=== PATIENT | female | born 1955 | race Caucasian/White ===

== ENCOUNTER 2019-11-06 11:14 | Emergency (ER) | payer MEDICARE, OTHER, SELFPAY ==
[2019-11-06 11:22] VITALS: BP 161/88; PULSE 99; RESP 24; TEMP 36.3; O2SAT 90; BMI 28.0
[2019-11-06 11:42] VITALS: BP 114/77; PULSE 88; RESP 20; O2SAT 99
--- NOTE | 2019-11-06 12:00 | XR_ITS ---
WS: [id number] Portable AP upright chest, 11/06/2019 Clinical Data: dyspnea Comparison: Portable chest, 10/05/2016. Findings: No nodules, masses or effusions are seen. The heart is normal. The pulmonary vascularity is not increased. No pneumonia or pneumothorax is seen. Midline sternotomy sutures are present. XR/XR chest 1V portable [id number] Impression: Negative for acute cardiopulmonary disease.
--- NOTE | 2019-11-06 12:02 | ECG_ITS ---
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 Measurements Intervals [place] Rate: 85 P: 65 NE: 155 QRS: 56 QRSD: 150 T: 182 QT: 387 QTc: 460 Interpretive Statements SINUS RHYTHM POSSIBLE LEFT ATRIAL ENLARGEMENT [-0.1mV P WAVE IN V1/V2] INTRAVENTRICULAR CONDUCTION DELAY [130+ ms QRS DURATION] Compared to ECG 01/06/2019 12:48:31 Intraventricular conduction delay now present Left bundle-branch block no longer present Electronically Signed On 11-06-2019 20:21:26 CDT by Sawyer Engel M.D. [id number] f
[2019-11-06 12:14] VITALS: PULSE 86; RESP 24; O2SAT 99
[2019-11-06] MEDS: albuterol 8 gm MDI 4 PUFF INHALATION (12:14)
[2019-11-06 12:16] VITALS: PULSE 90
[2019-11-06] MEDS: dexamethasone 10 mg/mL INJ IVP (12:47)
[2019-11-06 12:53] LABS: Basophils % 0.4 %; Eosinophils % 0.4 %; Hematocrit 37.4 % (37.0-47.0); Hemoglobin 12.4 g/dL (11.5-15.3); Lymphocytes # 2.7 10^3/uL (0.8-4.8); Mean Corpuscular HGB Conc 33.2 g/dL (30.0-36.0); Mean Corpuscular Hemoglobin 32.5 pg (28.0-34.0); Mean Corpuscular Volume 97.9 fL (81-99); Mean Platelet Volume 10.1 fL (7.4-10.4); Monocytes # 0.9 10^3/uL (0.2-0.9); Monocytes % 8.2 %; Neutrophils # 7.12 10^3/uL (1.8-7.7); Neutrophils % 65.9 %; Nucleated Red Blood Cells % 0 %; Platelet Count 258 10^3/cmm (130-400); Red Blood Count 3.82 10^6/uL (4.1-5.3); Red Cell Distribution Width 12.4 % (12.1-15.1); White Blood Count 10.8 10^3/uL (4.0-10.0)
[2019-11-06 13:10] LABS: INR 0.91 (0.8-1.2)
[2019-11-06 13:12] LABS: D Dimer 0.45 ug/mIFEU (0-0.59)
[2019-11-06 13:17] LABS: Troponin(5th) Baseline 17 ng/L (0-10)
[2019-11-06 13:25] LABS: Procalcitonin 0.03 ng/mL (0-0.5)
[2019-11-06 13:36] LABS: Alanine Aminotransferase 22 U/L (0-33); Albumin Level 4.4 g/dL (3.5-5.2); Alkaline Phosphatase 102 IU/L (35-105); Anion Gap 18.2 (5-19); Aspartate Amino Transferase 24 U/L (0-32); Blood Urea Nitrogen 10 mg/dL (8-23); C Reactive Protein 33.3 mg/L (0.0-4.9); Calcium 8.5 mg/dL (8.5-10.5); Carbon Dioxide 24 mmol/L (22-29); Chloride 101 mmol/L (98-107); Globulin 2.5 g/dL (1.3-4.6); Glomerular Filtration Rate 62.6 mL/min (90-130); Glucose 106 mg/dL (65-115); Osmolality Calculated 284 mOsm/kg (285-295); Potassium 4.2 mmol/L (3.5-5.1); Sodium 139 mmol/L (136-145); Total Bilirubin 0.3 mg/dL (0.15-1.2); Total Protein 6.9 g/dL (6.6-8.7)
[2019-11-06 13:45] LABS: SARS Covid-2 Antigen Negative (Negative)
--- NOTE | 2019-11-06 14:02 | ECG_ITS ---
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 Measurements Intervals [place] Rate: 86 P: 63 TN: 152 QRS: 48 QRSD: 149 T: 71 QT: 405 QTc: 485 Interpretive Statements SINUS RHYTHM POSSIBLE LEFT ATRIAL ENLARGEMENT [-0.1mV P WAVE IN V1/V2] LEFT BUNDLE BRANCH BLOCK [120+ ms QRS DURATION, 80+ ms Q/S IN V1/V2, 85+ ms R IN I/aVL/V5/V6] Compared to ECG 11/06/2019 12:11:11 Left bundle-branch block now present Intraventricular conduction delay no longer present Electronically Signed On 11-06-2019 20:25:05 CDT by Sawyer Engel M.D. [id number] f
[2019-11-06 15:14] LABS: Troponin 5 2HR 14.33 ng/L (0-10)
[2019-11-06 15:17] LABS: Troponin 5 2HR Delta -2.67 ABS# (0-10)
[2019-11-06 16:21] VITALS: BP 137/76; PULSE 94; RESP 18; O2SAT 99
--- NOTE | 2019-11-06 23:18 | W.ED.SOB ---
HPI - SOB/Dyspnea General: Chief Complaint: Shortness of Breath/Dyspnea Stated Complaint: sob/cough Time Seen by Provider: 11/06/19 11:47 History of Present Illness: HPI Narrative: This patient is a 64-year-old female who presents today with shortness of breath. She has a history of COPD. She denies fevers or exposure to COVID. She said she usually gets bronchitis and this feels similar to that. MD elicited complaint: shortness of breath and cough Pertinent past history: COPD Timing: constant Severity: moderate Exacerbating factors: nothing Relieving factors: nothing Associated symptoms: Deny abdominal pain, chest pain, fever(s), nausea or vomiting Review of Systems General: Reports: 10 or more systems reviewed and unremarkable except in HPI and below Const: Denies: fever(s), chills, fatigue or malaise Eyes: Denies: change in vision ENMT: Denies: odynophagia Card: Denies: chest pain or swelling of feet/ankles Resp: Reports: dyspnea; Denies: productive cough or non-productive cough GI: Denies: abdominal pain, nausea or vomiting : Denies: flank pain or difficulty voiding Musc: Denies: neck pain or back pain Skin/Breast: Denies: rash Neuro: Denies: headache(s), numbness in extremities or weakness in extremities Samir/Lymph: Denies: easy bruising or easy bleeding Physical Exam Const: COMMON NORMALS: no acute distress, patient oriented x3, no limitations and alert GENERAL APPEARANCE: cooperative and comfortable HENMT: HEAD & SCALP: normal to inspection FACE & SINUS: normal facial exam Eye: GENERAL EYE: appearance normal, both eyes and all related structures Neck/C-Spine: COMMON NORMALS: supple, no meningeal signs and no JVD Chest: COMMONS NORMALS: normal inspection of the chest Resp: EFFORT & INSPECTION: Yes able to speak in complete sentences, Yes labored and Yes uses accessory muscles AUSCULTATION: wheezes (Throughout) Cardio: COMMON NORMALS: no JVD, regular rate, regular rhythm and No murmurs present (Cardio) RATE: regular rate RHYTHM: regular rhythm GI: COMMON NORMALS: Normal to inspection, nondistended, normoactive bowel sounds present, Soft to palpation and non-tender INSPECTION: Yes normal to inspection AUSCULTATION: Yes normoactive bowel sounds PALPATION: Yes Soft to palpation Back/Pelvis: COMMON NORMALS: thoracic and lumbar spine normal to inspection Extremity: COMMON NORMALS: normal to inspection Neuro: COMMON NORMALS: patient oriented x3, moves all extremities, no focal motor deficits and no sensory deficits noted SENSORIUM/ORIENTATION: Yes alert MENINGEAL SIGNS: Yes no meningeal signs Psych: COMMON NORMALS: mental status grossly normal, cooperative and normal affect Skin: COMMON NORMALS: no rashes or lesions noted and turgor normal GENERAL SKIN EXAM: no rashes or lesions noted and turgor normal Course ED course: Patient with history of COPD. She presents with what appears to be a COPD exacerbation. She did have a COVID test done which was negative. Chest x-ray was clear. She was dramatically better after 4 puffs of albuterol. She was also given some Decadron. I do not think she needs antibiotics. She was sent home and said that she felt very comfortable going home. She has nebulizer treatments at home. She will follow-up with her primary care doctor and we also discussed return precautions. Vital Signs: Vital signs: Vital Signs Temperature 97.4 F L 11/06/19 11:22 Pulse Rate 94 11/06/19 16:21 Respiratory Rate 18 11/06/19 16:21 Blood Pressure 137/76 11/06/19 16:21 Pulse Oximetry 99 11/06/19 16:21 MDM - SOB/Dyspnea Lab Data: Labs: Lab Results 11/06/19 11/06/19 11/06/19 Range/Units 12:35 12:35 12:35 WBC 10.8 H (4.0-10.0) 10^3/ uL RBC 3.82 L (4.1-5.3) 10^6/u L Hgb 12.4 (11.5-15.3) g/dL Hct 37.4 (37.0-47.0) % MCV 97.9 (81-99) fL MCH 32.5 (28.0-34.0) pg MCHC 33.2 (30.0-36.0) g/dL RDW 12.4 (12.1-15.1) % Plt Count 258 (130-400) 10^3/c mm MPV 10.1 (7.4-10.4) fL Neut % (Auto) 65.9 % Lymph % (Auto) 25.0 % [place] % (Auto) 8.2 % Eos % (Auto) 0.4 % Baso % (Auto) 0.4 % Neut # (Auto) 7.12 (1.8-7.7) 10^3/u L Lymph # (Auto) 2.7 (0.8-4.8) 10^3/u L [place] # (Auto) 0.9 (0.2-0.9) 10^3/u L Eos # (Auto) 0.0 (0.0-0.8) 10^3/u L Baso # (Auto) 0.0 (0.0-0.1) 10^3/u L Nucleated RBC % (a uto) 0 % Nucleated RBCs # 0.0 /100WBC PT 12.50 (12.1-14.9) SECO NDS INR 0.91 (0.8-1.2) D-Dimer 0.45 (0-0.59) ug/mIFE U Sodium 139 (136-145) mmol/L Potassium 4.2 (3.5-5.1) mmol/L Chloride 101 (98-107) mmol/L Carbon Dioxide 24 (22-29) mmol/L Anion Gap 18.2 (5-19) BUN 10 (8-23) mg/dL Creatinine 0.9 (0.5-0.9) mg/dL GFR Calculation 62.6 L (90-130) mL/min Glucose 106 (65-115) mg/dL Calculated Osmolal ity 284 L (285-295) mOsm/k g Calcium 8.5 (8.5-10.5) mg/dL Total Bilirubin 0.3 (0.15-1.2) mg/dL AST 24 (0-32) U/L ALT 22 (0-33) U/L Alkaline Phosphata se 102 (35-105) IU/L Troponin T Baselin e (0-10) ng/L Troponin T 120 Min [place] (0-10) ng/L Delta Troponin T (0-10) ABS# C-Reactive Protein 33.3 H (0.0-4.9) mg/L Total Protein 6.9 (6.6-8.7) g/dL Albumin 4.4 (3.5-5.2) g/dL Globulin 2.5 (1.3-4.6) g/dL Procalcitonin 0.03 (0-0.5) ng/mL SARS-CoV-2 Ag (Rap id) (Negative) 11/06/19 11/06/19 11/06/19 Range/Units 12:35 12:40 14:45 WBC (4.0-10.0) 10^3/ uL RBC (4.1-5.3) 10^6/u L Hgb (11.5-15.3) g/dL Hct (37.0-47.0) % MCV (81-99) fL MCH (28.0-34.0) pg MCHC (30.0-36.0) g/dL RDW (12.1-15.1) % Plt Count (130-400) 10^3/c mm MPV (7.4-10.4) fL Neut % (Auto) % Lymph % (Auto) % [place] % (Auto) % Eos % (Auto) % Baso % (Auto) % Neut # (Auto) (1.8-7.7) 10^3/u L Lymph # (Auto) (0.8-4.8) 10^3/u L [place] # (Auto) (0.2-0.9) 10^3/u L Eos # (Auto) (0.0-0.8) 10^3/u L Baso # (Auto) (0.0-0.1) 10^3/u L Nucleated RBC % (a uto) % Nucleated RBCs # /100WBC PT (12.1-14.9) SECO NDS INR (0.8-1.2) D-Dimer (0-0.59) ug/mIFE U Sodium (136-145) mmol/L Potassium (3.5-5.1) mmol/L Chloride (98-107) mmol/L Carbon Dioxide (22-29) mmol/L Anion Gap (5-19) BUN (8-23) mg/dL Creatinine (0.5-0.9) mg/dL GFR Calculation (90-130) mL/min Glucose (65-115) mg/dL Calculated Osmolal ity (285-295) mOsm/k g Calcium (8.5-10.5) mg/dL Total Bilirubin (0.15-1.2) mg/dL AST (0-32) U/L ALT (0-33) U/L Alkaline Phosphata se (35-105) IU/L Troponin T Baselin e 17 H (0-10) ng/L Troponin T 120 Min [place] 14.33 H (0-10) ng/L Delta Troponin T -2.67 L (0-10) ABS# C-Reactive Protein (0.0-4.9) mg/L Total Protein (6.6-8.7) g/dL Albumin (3.5-5.2) g/dL Globulin (1.3-4.6) g/dL Procalcitonin (0-0.5) ng/mL SARS-CoV-2 Ag (Rap id) Negative (Negative) Discharge Plan Discharge Patient Disposition: Home Clinical Impression: COPD exacerbation Condition: Stable Prescriptions: No Action albuterol sulfate 2.5 mg /3 mL (0.083 %) solution for nebulization 2.5 mg INHALATION QID PRN (Reason: Shortness Of Breath) RF: 0 amlodipine 10 mg tablet 10 mg PO DAILY RF: 0 cholecalciferol (vitamin D3) 1,000 unit capsule 1,000 unit PO DAILY RF: 0 furosemide 40 mg tablet 40 mg PO QAM PRN (Reason: Edema) RF: 0 loratadine [Loradamed] 10 mg tablet 10 mg PO ONCE RF: 0 metoprolol succinate 50 mg capsule,sprinkle,ER 24hr 50 mg PO DAILY RF: 0 montelukast [Singulair] 10 mg tablet 10 mg PO DAILY RF: 0 omeprazole 20 mg capsule,delayed release(DR/EC) 20 mg PO DAILY RF: 0 oxybutynin chloride 5 mg tablet 5 mg PO BID PRN (Reason: Bladder Spasms) RF: 0 sertraline 100 mg tablet 100 mg PO Q24H RF: 0 Ativan 1 tab PO DAILY RF: 0 Multiple Vitamin, Womens Tablet 1 tab PO DAILY RF: 0 mirtazapine 1 mg PO BEDTIME RF: 0 Discharge Orders: Discharge Order (Routine); Ordered 11/06/19 Ordered By: Carey Poole Referrals: Castro,Donna, [employer] [Primary Care Provider] - Discharge Diet: Usual diet Discharge Activity: Resume usual activity Patient Instructions: Chronic Obstructive Pulmonary Disease (ED) Activity Restrictions/Additional Instructions: Return to the emergency department if feeling worse including worsening shortness of breath, chest pain, fever. Continue your regular medications as prescribed. The steroid that was given to here last for several days in your system. Follow-up with your primary care provider if not improving within a few days Discharge Date/Time: 11/06/19 16:00 Coding Level of Care Code ED Transportation Mechanic for Jane Bazzi
== END 2019-11-06 16:00 | disposition home or self-care (01) ==
PROVIDERS: Emergency Provider Emergency Medicine; PCP Nurse Practitioner Family
DX: J44.1 Chronic obstructive pulmonary disease with (acute) exacerbation (principal)
CPT/HCPCS: 12345; 36415; 71045; 80053; 84145; 84484; 85025; 85378; 85610; 86140; 87426; 93005; 94640; 96374; 96375; 99283; 99284; J1100; J3535

== ENCOUNTER 2020-04-28 13:59 | Outpatient (CLI) | payer MEDICARE, OTHER, SELFPAY ==
--- NOTE | 2020-04-28 13:30 | CT_ITS ---
WS: [id number] CT ABDOMEN PELVIS TECHNIQUE: Contrast-enhanced CT of the abdomen and pelvis with coronal and sagittal reformatted image s. CLINICAL INFORMATION: ABD PAIN, GERD, GASTRITIS, PVD, SYSTEMIC POLYPS COMPARISON: None. DLP: 1057.[address] scans at [facility] use at least one of these dose optimization techniques: automat ed exposure control; mA and/or kV adjustment per patient size (includes targeted exams where dose is matched to clinical indication); or iterative reconstruction. FINDINGS: Diffuse fatty infiltration of the liver. Normal portal vein and splenic vein. Normal gallbladder. Nor mal pancreas. Normal splenic enhancement. Normal GE junction. Small esophageal hiatal hernia. Lung ba ses are well aerated. Mild diffuse gastric and duodenal thickening can be seen with gastritis and duo denitis.. Adrenal glands are normal. Normal renal parenchymal enhancement. No hydronephrosis. Promine nt right extrarenal pelvis. Both ureters are decompressed. Postoperative changes right OWEN degrades images in the pelvis. A few sigmoid diverticuli. No evidence of acute diverticulitis. No evidence of high-grade small or large bowel obstruction. Normal appendix right lower quadrant. Terminal ilium appears normal. No abdominal or pelvic lymphadenopathy. Mild ao rtic calcification. Slight anterolisthesis L5 on S1. Disc space narrowing worse at L3-L4 and L4-L5 wi th vacuum disc phenomenon. CT/CT abdomen pelvis w con* [id number] IMPRESSION: 1. No evidence of high-grade small or large bowel obstruction. 2. Tortuous sigmoid colon. A few diverticuli. 3. Normal appendix right lower quadrant. Normal terminal ilium. 4. Mild diffuse gastric and duodenal wall thickening can be seen with gastrodu odenitis. Recommend clinical correlation. 5. Small esophageal hiatal hernia. 6. Mild diffuse fatty infiltration of the liver. 7. Prominent right extra renal pelvis unchanged since the CTA chest 2017
[2020-04-28] MEDS: iohexol 300 mg/mL 50 mL Btl PO (14:14)
[2020-04-28 15:05] LABS: Blood Urea Nitrogen 14 mg/dL (8-23); Glomerular Filtration Rate 55.3 mL/min (90-130)
[2020-04-28] MEDS: iodixanol 320 mg/mL 100mL Btl IV (15:12)
== END 2020-04-28 14:00 | disposition home or self-care (01) ==
LOC: RADWPI 14:09
PROVIDERS: PCP Nurse Practitioner Family; Visit Provider Nurse Practitioner Family
DX: R10.9 Unspecified abdominal pain (principal); K21.9 Gastro-esophageal reflux disease without esophagitis; I73.9 Peripheral vascular disease, unspecified; K29.70 Gastritis, unspecified, without bleeding; K76.0 Fatty (change of) liver, not elsewhere classified; K44.9 Diaphragmatic hernia without obstruction or gangrene
CPT/HCPCS: 74177; 82565; 84520; Q9967

== ENCOUNTER 2020-06-04 13:35 | Outpatient (CLI) | payer MEDICARE, OTHER, SELFPAY ==
--- NOTE | 2020-06-04 14:15 | USCV_ITS ---
Ida Small Age: 65 Gender: F : 1955 Exam Date: 06/04/2020 14:09 Ordering Phys: Horacio Ruff M.D ([email or web address]) Technologist: Rody Beverly Exam Location: [facility] [place] Indication: PVD Risk Factors: Previous Vascular Surgery: RIGHT LEFT BP: 130.0 / BP: 138.0/ 0 0 Waveform Velocity (cm/s) Velocity (cm/s) Waveform Triphasic 126.8 Iliac Prox 115.7 Triphasic Triphasic 144.9 Iliac Mid 117.8 Triphasic Triphasic 155.2 Iliac Distal 118.7 Triphasic Triphasic 111.0 SIGNAL MECHANIC 153.5 Triphasic Triphasic 155.4 SFA Prox 133.6 Triphasic Triphasic 156.9 SFA Mid 156.9 Triphasic Triphasic 298.0 SFA Dist 149.1 Triphasic Triphasic 109.2 POP 123.2 Triphasic Triphasic 119.1 STUDENT LIAISON OFFICER 89.7 Triphasic Triphasic 101.4 DPA 105.8 N/A 1.1 SERA 1.1 FINDINGS RT STUDENT LIAISON OFFICER 140 RT DPA 145 LT STUDENT LIAISON OFFICER 125 LT DPA 145 Normal resting ABIs bilaterally Normal arterial Doppler waveforms bilaterally Elevated velocity in the distal right superficial femoral artery with a normal Doppler waveform. CONCLUSIONS 1. Possibly no significant obstructive arterial disease based on the above findings. 2. Elevated velocity in the right distal SFA may suggests tortuosity in the vessel. Consider exercise SERA, if clinically indicated Dr Carla Thakur MD [facility] (Electronically Signed) Final Date: 04 June 2020 15:20 S
== END 2020-06-04 13:36 | disposition home or self-care (01) ==
LOC: RAD 13:40
PROVIDERS: PCP Nurse Practitioner Family; Visit Provider Internal Medicine
DX: I73.9 Peripheral vascular disease, unspecified (principal)
CPT/HCPCS: 93925

== ENCOUNTER 2020-08-05 21:47 | Emergency (ER) | payer MEDICARE, OTHER, SELFPAY ==
[2020-08-05 21:48] VITALS: BP 189/90; PULSE 95; RESP 20; TEMP 36.7; O2SAT 96; BMI 28.3
--- NOTE | 2020-08-05 22:01 | XRR_ITS ---
PROCEDURE INFORMATION: Exam: XR Left Knee Exam date and time: 08/05/2020 10:01 PM Age: 65 years old Clinical indication: Injury or trauma; Blunt trauma; Left; Patient HX: Fall. Abrasion to knee. TECHNIQUE: Imaging protocol: XR Left knee. Views: 3 views. COMPARISON: No relevant prior studies available. FINDINGS: Bones/joints: There is a loss of joint space seen within the 3 compartments of the left knee, most severe within the medial compartment. Soft tissues: Normal. 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
--- NOTE | 2020-08-05 22:01 | XRR_ITS ---
PROCEDURE INFORMATION: Exam: XR Chest Exam date and time: 08/05/2020 10:01 PM Age: 65 years old Clinical indication: Injury or trauma; Blunt trauma (contusions or hematomas); Prior surgery; Surgery type: Cabg; Patient HX: Fall. ; Additional info: SOB TECHNIQUE: Imaging protocol: XR of the chest. Views: 1 view. COMPARISON: CR XR chest 1V portable [id number] 11/06/2019 12:22 PM FINDINGS: Lungs: Unremarkable. No consolidation. Pleural spaces: Unremarkable. No pleural effusion. No pneumothorax. Heart/Mediastinum: Unremarkable. No cardiomegaly. Bones/joints: Unremarkable. XR/XR chest 1V portable [id number] IMPRESSION: No acute findings.
--- NOTE | 2020-08-05 22:01 | ECG_ITS ---
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 Measurements Intervals [place] Rate: 85 P: 62 ID: 170 QRS: 59 QRSD: 166 T: 172 QT: 420 QTc: 502 Interpretive Statements SINUS RHYTHM POSSIBLE LEFT ATRIAL ENLARGEMENT [-0.1mV P WAVE IN V1/V2] LEFT BUNDLE BRANCH BLOCK [120+ ms QRS DURATION, 80+ ms Q/S IN V1/V2, 85+ ms R IN I/aVL/V5/V6] Compared to ECG 11/06/2019 14:25:44 No significant changes Electronically Signed On 08-05-2020 23:10:31 CDT by Horacio Ruff M.D. [id number] f
--- NOTE | 2020-08-05 22:01 | XRR_ITS ---
PROCEDURE INFORMATION: Exam: XR Left Hip Exam date and time: 08/05/2020 10:01 PM Age: 65 years old Clinical indication: Injury or trauma; Blunt trauma (contusions or hematomas); Left; Hip; Patient HX: Fall. C/O pain. TECHNIQUE: Imaging protocol: XR Left hip. Views: 2 or 3 views hip with pelvis when performed. COMPARISON: CT abdomen pelvis w con* [id number] 04/28/2020 3:09 PM FINDINGS: Bones/joints: Unremarkable. No acute fracture. Soft tissues: Unremarkable. XR/XR hip LT 2-3V wo/w pel* [id number] IMPRESSION: No acute findings.
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
[2020-08-05] MEDS: LORazepam 2 mg/mL INJ 1 mL 1 MG IVP (22:12)
--- NOTE | 2020-08-05 22:25 | PC.NURSE ---
EKG taken and given to Dr. Patel
[2020-08-06 00:04] VITALS: BP 151/89; PULSE 82; RESP 18; O2SAT 95
== END 2020-08-06 00:04 | disposition home or self-care (01) ==
PROVIDERS: Emergency Provider Emergency Medicine; PCP Nurse Practitioner Family
DX: F41.9 Anxiety disorder, unspecified (principal); S80.212A Abrasion, left knee, initial encounter; Z79.82 Long term (current) use of aspirin; I25.10 Atherosclerotic heart disease of native coronary artery without angina pectoris; I11.0 Hypertensive heart disease with heart failure; I50.9 Heart failure, unspecified; J44.9 Chronic obstructive pulmonary disease, unspecified; Z95.1 Presence of aortocoronary bypass graft; F17.210 Nicotine dependence, cigarettes, uncomplicated; W19.XXXA Unspecified fall, initial encounter
CPT/HCPCS: 71045; 73502; 73562; 93005; 96374; 99283; J2060

== ENCOUNTER → 2021-04-27 10:43 | Outpatient (BNVA) | payer MEDICARE, OTHER, SELFPAY | PROVIDERS: PCP Nurse Practitioner Family; Visit Provider Internal Medicine | DX: M19.90 Unspecified osteoarthritis, unspecified site (principal); R79.82 Elevated C-reactive protein (CRP); R51.9 Headache, unspecified; R21 Rash and other nonspecific skin eruption; Z11.59 Encounter for screening for other viral diseases; F17.210 Nicotine dependence, cigarettes, uncomplicated | CPT/HCPCS: 99204 ==

== ENCOUNTER 2021-04-27 12:07 | Outpatient (CLI) | payer MEDICARE, OTHER, SELFPAY ==
[2021-04-27 12:51] LABS: Add Urine Microscopic? NO; Charge for UA Resulting for Rev
--- NOTE | 2021-04-27 12:55 | XR_ITS ---
WS: [id number] Lateral views of cervical spine in the flexion, extension and neutral positions. 04/27/2021 Clinical Data: I10 - Essential (primary) hypertension Comparison: None. Findings: There is degenerative disc narrowing at C5-C6 and C6-C7 with anterior osteophytes. On flexion and ext ension there is no limitation of motion or subluxation. There is no prevertebral soft tissue swelling . Postop sternal sutures are seen. XR/XR cervical spine fl/ex [id number] Impression: 1. Degenerative disc narrowing at C5-C6 and C6-C7 with anterior osteophytes. 2. Negative for limitation of motion or subluxation on flexion or extension.
[2021-04-27 13:09] LABS: Erythrocyte Sedimentation Rate 24 mm/hr (0-15)
[2021-04-27 13:16] LABS: Bilirubin Urine Neg (Negative); Blood Urine Neg (Negative); Glucose Urine UA Norm (Normal); Ketones Urine Negative (Negative); Leukocyte Esterase Urine Negative (Negative); Nitrate Urine Negative (Negative); Protein Urine Neg (Negative); Specific Gravity, Urine 1.005 (1.005-1.030); Urine Appearance Clear (CLEAR); Urine Color Straw (Yellow); Urobilinogen Urine Norm (Negative); pH Urine 6 (5-7)
[2021-04-27 13:44] LABS: Hepatitis B Core AB, Total Non-Reactive (Nonreactive); Hepatitis B Surface Antigen Non-Reactive (Nonreactive); Hepatitis C Virus Antibody Non-Reactive (Nonreactive)
[2021-04-28 11:58] LABS: COMPLEMENT COMPONENT C3C 144 mg/dL (83-193); COMPLEMENT COMPONENT C4C 30 mg/dL (15-57)
[2021-04-28 14:47] LABS: Cyclic Citrullinated Peptide <16 UNITS
[2021-04-29 10:52] LABS: CENTROMERE B ANTIBODY <1.0 NEG AI (<1.0 NEG); JO-1 ANTIBODY <1.0 NEG AI (<1.0 NEG); RNP ANTIBODY <1.0 NEG AI (<1.0 NEG); SCL-70 ANTIBODY <1.0 NEG AI (<1.0 NEG); SJOGREN'S ANTIBODY (SS-A) <1.0 NEG AI (<1.0 NEG); SM ANTIBODY <1.0 NEG AI (<1.0 NEG); SS-B <1.0 NEG AI (<1.0 NEG)
[2021-04-29 15:07] LABS: COMPLEMENT, TOTAL (CH50) >60 U/mL (31-60)
[2021-04-29 15:47] LABS: Immunoglobulin A 287 mg/dL (70-320)
[2021-04-29 15:52] LABS: ANA SCREEN, IFA NEGATIVE (NEGATIVE)
[2021-04-29 16:23] LABS: THYROID PEROXIDASE ANTIBODIES <1 IU/mL (<9)
[2021-04-30 02:02] LABS: Tissue Transglutaminase IgA Ab <1.0 U/mL; Tissue transglutaminase Ab.IgG <1.0 U/mL
[2021-04-30 02:13] LABS: Gliadin Ab.IgA <1.0 U/mL; Gliadin Ab.IgG <1.0 U/mL
[2021-04-30 11:41] LABS: DNA AB (DS) CRITHIDIA,IFA NEGATIVE (NEGATIVE)
== END 2021-04-27 12:08 | disposition home or self-care (01) ==
PROVIDERS: PCP Nurse Practitioner Family; Visit Provider Internal Medicine
DX: I10 Essential (primary) hypertension (principal); M25.78 Osteophyte, vertebrae
CPT/HCPCS: 36415; 72040; 81003; 82784; 83516; 85651; 86160; 86162; 86200; 86235; 86255; 86376; 86431; 86704; 86803; 87340

== ENCOUNTER → 2021-05-05 12:36 | Outpatient (BNVA) | payer MEDICARE, OTHER, SELFPAY | PROVIDERS: PCP Nurse Practitioner Family; Visit Provider Internal Medicine | DX: M19.90 Unspecified osteoarthritis, unspecified site (principal); R79.82 Elevated C-reactive protein (CRP); F17.210 Nicotine dependence, cigarettes, uncomplicated | CPT/HCPCS: 99214 ==

== ENCOUNTER 2024-12-29 20:13 | Emergency (ER) | payer MEDICARE, OTHER, SELFPAY ==
--- OUTSIDE RECORDS SUMMARY | 2024-12-11 07:00 | XMS_ITS ---
Author Organization [facility] Address [address] [place] [address] Care Team Providers Care Outcomes Specialist Name Role Phone Ryan Fritz Primary Care Provider [phone] REASON FOR VISIT 3 MONTH F/U Encounters Encounter Location Date Provider Diagnosis [facility] [address] [phone] 12/11/2024 Ryan Fritz Plan Of Treatment Next Appt Details Provider Name:Ryan Fritz, 06/10/2025 01:00:00 PM, [address] [facility] [address], [place], [address], Progress Notes * Kyara MALLOYneDOB:1955 (69 yo F)Acc No.[id number]:12/11/2024 Progress Notes Patient: Nathaly Jerome Provider: Amado Fritz MD :1955 A ge:69 Y S ex:Female Date:12/11/2024 Address:[address] , [place], [id number] Subjective: * Chief Complaints: * 3 MONTH F/U Care Plan Details* * Electronic signature of Emilia Fritz MD on 12/29/2024 at 08:47 PM MARKETING PRODUCTION COORDINATOR Sign off status: Pending * Provider: Amado Fritz MD Date: Generated for Fareedi ng/Fayennyg/eTransmitting on: 02/29/2024 08:47 PM MARKETING PRODUCTION COORDINATOR
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
[2024-12-29 20:17] VITALS: BP 178/89; PULSE 77; RESP 18; TEMP 36.4; O2SAT 97; BMI 23.8
[2024-12-29 20:25] VITALS: BP 182/83; PULSE 75; O2SAT 97
[2024-12-29 20:33] VITALS: BP 146/80; PULSE 77; O2SAT 96
--- NOTE | 2024-12-29 20:33 | CTR_ITS ---
PROCEDURE INFORMATION: Exam: CT Maxillofacial Without Contrast Exam date and time: 12/29/2024 8:40 PM Age: 69 years old Clinical indication: Injury or trauma; Fall; Blunt trauma (contusions or hematomas); Orbit/periorbital; Right; Additional info: R periorbital pain/ecchymosis TECHNIQUE: Imaging protocol: Computed tomography of the face without contrast. Radiation optimization: All CT scans at this facility use at least one of these dose optimization techniques: automated exposure control; mA and/or kV adjustment per patient size (includes targeted exams where dose is matched to clinical indication); or iterative reconstruction. COMPARISON: CT head wo con* [id number] 12/29/2024 8:40 PM RADIATION DOSE METRICS: Total DLP (mGy-cm): 571.5 FINDINGS: Paranasal sinuses: No air-fluid levels. Orbital cavities: Orbits are normal. Globes are unremarkable. Bones: No acute fracture. Soft tissues: Unremarkable. CT/CT facial bones wo con* [id number] IMPRESSION: No acute findings.
--- NOTE | 2024-12-29 20:33 | ECG_ITS ---
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 Measurements Intervals Metter Rate: 83 P: 121 WV: 181 QRS: 152 QRSD: 166 T: 88 QT: 440 QTc: 519 Interpretive Statements SINUS RHYTHM WITH FREQUENT VENTRICULAR PREMATURE COMPLEXES ARM LEADS REVERSED [INVERTED P AND QRS IN I] ABNORMAL RHYTHM ECG Compared to ECG 08/05/2020 22:20:32 Ventricular premature complex(es) now present Left bundle-branch block no longer present Heavy baseline artifacts; Need to repeat the study. Electronically Signed On 12-30-2024 21:56:55 TRANSPLANT NURSE PRACTITIONER by Carla Thakur M.D. [email or web address]
--- NOTE | 2024-12-29 20:33 | CTR_ITS ---
PROCEDURE INFORMATION: Exam: CT Cervical Spine Without Contrast Exam date and time: 12/29/2024 8:40 PM Age: 69 years old Clinical indication: Injury or trauma; Fall; Blunt trauma; Additional info: Fall/neck pain TECHNIQUE: Imaging protocol: Computed tomography of the cervical spine without contrast. Radiation optimization: All CT scans at this facility use at least one of these dose optimization techniques: automated exposure control; mA and/or kV adjustment per patient size (includes targeted exams where dose is matched to clinical indication); or iterative reconstruction. COMPARISON: CR XR cervical spine fl/ex [id number] 04/27/2021 1:11 PM RADIATION DOSE METRICS: Total DLP (mGy-cm): 165.8 FINDINGS: Bones: No acute fracture. Normal alignment. No significant disc bulge or herniation. No severe spinal canal stenosis. Ovfwuxzb-yn-gthlvl right foraminal narrowing at C3-C4 due to facet and uncovertebral joint arthrosis. Otherwise no significant neural foraminal narrowing. Lungs: Lung apices are normal. Soft tissues: Extensive dense atherosclerotic vascular calcifications in the right carotid bulb are likely causing at least 70% diameter stenosis of the right carotid bulb and proximal internal carotid artery. CT/CT cervical spin wo con* [id number] IMPRESSION: 1. No acute cervical spine fracture. 2. Consider nonemergent carotid sonography for evaluation of the right carotid artery.
--- NOTE | 2024-12-29 20:33 | CTR_ITS ---
PROCEDURE INFORMATION: Exam: CT Head Without Contrast Exam date and time: 12/29/2024 8:40 PM Age: 69 years old Clinical indication: Injury or trauma; Fall; Blunt trauma (contusions or hematomas); Additional info: Fall/hit head TECHNIQUE: Imaging protocol: Computed tomography of the head without contrast. Radiation optimization: All CT scans at this facility use at least one of these dose optimization techniques: automated exposure control; mA and/or kV adjustment per patient size (includes targeted exams where dose is matched to clinical indication); or iterative reconstruction. COMPARISON: CT facial bones wo con* [id number] 12/29/2024 8:40 PM RADIATION DOSE METRICS: Total DLP (mGy-cm): 1043.5 FINDINGS: Brain: No acute intra-axial hemorrhage. No masses. Normal templeton-white matter differentiation. No midline shift or mass effect. Moderate patchy hypodensity in hemispheric white matter bilaterally most likely due to chronic microangiopathy. Cerebral ventricles: No ventriculomegaly. Paranasal sinuses: Visualized sinuses are unremarkable. No fluid levels. Mastoid air cells: Visualized mastoid air cells are well aerated. Bones: Unremarkable. No acute fracture. Soft tissues: Right forehead soft tissue contusion. CT/CT head wo con* [id number] IMPRESSION: No acute intracranial abnormality.
--- OUTSIDE RECORDS SUMMARY | 2024-12-29 20:48 | XMS_ITS | Patient Health Record ---
Author Organization [facility] Address [address] [place] [address] Care Team Providers Care [employer] Web[employer] Portal Developer Name Role Phone Ryan Fritz Primary Care Provider Allergies No Known Allergies Reason For Referral No Information Medications Medication SIG (Take, Route, Frequency, Duration) Notes Start Date End Date Status Myrbetriq 25 MG Tablet Extended Release 24 Hour 1 tablet Orally Once a day; Duration: 30 day(s) 12/09/2024 Active Detrol LA 4 MG Capsule Extended Release 24 Hour 1 capsule Orally Once a day; Duration: 30 days 12/11/2024 Active Cetirizine HCl 10 MG Tablet 1 tablet Orally Once a day; Duration: 30 days Not-Taking Famotidine 40 MG Tablet TAKE 1 TABLET BY MOUTH ONCE DAILY AT NOON; Duration: 90 Active traZODone HCl 150 MG Tablet 1 tablet at bedtime Orally Once a day; Duration: 30 days 05/17/2023 Not-Taking Metoprolol Succinate ER 50 MG Tablet Extended Release 24 Hour TAKE 1 TABLET BY MOUTH ONCE DAILY AT BEDTIME Orally daily; Duration: 90 days Active Triamterene-HCTZ 37.5-25 MG Tablet 1/2 to 1 tab Orally Once a day prn swelling; Duration: 30 days Not-Taking ARIPiprazole 5 MG Tablet 1 tablet Orally Once a day; Duration: 90 days 05/07/2023 Active DULoxetine HCl 30 MG Capsule Delayed Release Particles 1 capsule Orally Once a day; Duration: 5 03/27/2023 Not-Taking DULoxetine HCl 60 MG Capsule Delayed Release Particles Take 1 capsule by mouth once daily Orally Once a day; Duration: 90 days Active traMADol HCl 50 MG Tablet TAKE 1 TABLET BY MOUTH EVERY 4 HOURS NEEDED FOR SEVERE PAIN FOR 30 DAYS; Duration: 15 03/29/2023 Not-Taking Pantoprazole Sodium 40 MG Tablet Delayed Release TAKE 1 TABLET BY MOUTH TWICE DAILY *REPLACES OMEPRAZOLE*; Duration: 30 Active SEROquel 100 MG Tablet 1 tablet Orally Once a day; Duration: 90 days Active Montelukast Sodium 10 MG Tablet Take 1 tablet by mouth once daily; Duration: 30 Active Vilazodone HCl 20 MG Tablet 1 tablet with food Orally Once a day; Duration: 30 days take 10 mg for the first week. 03/26/2023 Not-Taking Multivitamin Adults - Tablet as directed Orally daily Active amLODIPine Besylate 10 MG Tablet Take 1 tablet by mouth once daily; Duration: 90 Active Vitamin D High Potency 25 MCG (1000 UT) Capsule 1 capsule Orally Once a day Active Albuterol Sulfate HFA 108 (90 Base) MCG/ACT Aerosol Solution INHALE 2 PUFFS BY MOUTH 4 TIMES DAILY NEEDED; Duration: 25 Active Aspirin Adult Low Dose 81 MG Tablet Delayed Release 1 tablet Orally Once a day Not-Taking Immunizations Vaccine Route Administration Date Status Comme [facility] DTaP IM Intramuscular 11/20/2022 Administered [facility] 13 [phone] pt tolerated well/instructed to wait 20 min Flucelvax Trivalent, Syringe 0.5 mL, PF Unknown 04/09/2024 Refused Social History Tobacco Use: Social History Observation Description Date Details (start date - stop date) Current Smoker NA - NA Social History Depression Screening Social Info Question Answer Notes depression screening findings Findings Positive (5+ without suicidality) 04/09/24 PHQ-9 Little interest or pleasure in doing things Not at all Feeling down, depressed, or hopeless Not at all Trouble falling or staying asleep, or sleeping t oo much Not at all Feeling tired or having little energy Not at all Poor appetite or overeating Not at all Feeling bad about yourself, or that you are a failure, or have let yourself or your family down Not at all Trouble concentrating on thi ngs, such as reading the newspaper or watching television More than half the days Moving or speaking so slowly that other people could have noticed. Or the opposite ? being so fidgety or restless that you have been moving around a lot more than usual Not at all Thoughts that you would be b claudia off , or of hurting yourself in some way Not at all Total Score 2 Interpretation Minimal Depression Drugs/Alcohol: Social Info Question Answer Notes Alcohol Screen (Audit-C) Did you have a drink containing alcohol in the past year? No Points 0 Interpretation Negative Drugs Have you used drugs other than those for medical reasons in the past 12 months? No Comprehensive Health Assessm ent Social Info Question Answer Notes *Social Determinants of Health Has lack of transportation kept you from medical appointments, meetings, work or from getting things needed for daily living? No Recently, have you worried t hat your food would run out before you got money to buy more? No Do you feel physically and emotionally safe wher e you currently live? Yes Are you worried about losing your housing? No Have you recently been avelino rned that your utilities would be turned off (electricity, gas, or water)? No Tobacco Use: Social Info Question Answer Notes Tobacco Control (Standard) Tobacco use: Current smoker How often do you smoke cigarettes? Every day How many cigarettes a day do you smoke? - Section Notes: Depression screen completed 05/30/2022 score 5 07/21/2021 07/21/2021 Depression screen completed 05/30/2022 score 5 Depression screen completed 05/30/2022 score 5 Depression screen completed 05/30/2022 score 5 Depression screen completed 05/30/2022 score 5 Depression screen completed 05/30/2022 score 5 Depression screen completed 05/30/2022 score 5 Depression screen completed 05/30/2022 score 5 Depression screen completed 05/30/2022 score 5 Depression screen completed 05/30/2022 score 5 Dep/tob - 2 Depression screen completed 05/30/2022 score 5 Dep/tob - 2 CIME Dep 12/09/24 07/21/2021 07/21/2021 07/21/2021 Depression screen completed 05/30/2022 score 5 07/21/2021 07/21/2021 07/21/2021 Depression screen completed 05/30/2022 score 5 Depression screen completed 05/30/2022 score 5 Depression screen completed 05/30/2022 score 5 Depression screen completed 05/30/2022 score 5 Depression screen completed 05/30/2022 score 5 Depression screen completed 05/30/2022 score 5 Depression screen completed 05/30/2022 score 5 Dep/tob - 2 Problems Problem Type SNOMED Code ICD Code Onset Dates Problem Status W/U Status Risk Notes Problem Tobacco user (344653661) Nicotine dependence, cigarettes, uncomplicated (F17.210) Active confirmed Problem Primary insomnia (1751768) Primary insomnia (F51.01) Active confirmed Problem Vascular headache (111591682) Vascular headache, not elsewhere classified (G44.1) Active confirmed Problem Essential hypertension (97337598) Essential (primary) hypertension (I10) Active confirmed Problem Gastro-esophageal reflux disease without esophagitis (182032596) Gastro-esophageal reflux disease without esophagitis (K21.9) Active confirmed Problem Polymyalgia rheumatica (87262387) Polymyalgia rheumatica (M35.3) Active confirmed Problem Cervicalgia (64464489) Cervicalgia (M54.2) Active confirmed Problem Spasm (28784620) Other muscle spasm (M62.838) Active confirmed Problem Pain in limb (20651734) Pain in right toe(s) (M79.674) Active confirmed Problem Pain in limb (01179616) Pain in left toe(s) (M79.675) Active confirmed Problem Fatigue (24423493) Other fatigue (R53.83) Active confirmed Problem C-reactive protein abnormal (079835193) Elevated C-reactive protein (CRP) (R79.82) Active confirmed Problem Allergy (912620370) Allergy, unspecified, initial encounter (T78.40XA) Active confirmed Problem Lipid screening (390239809) Encounter for screening for lipoid disorders (Z13.220) Active confirmed Problem Long-term current use of drug therapy (443786320) Other detention (current) drug therapy (Z79.899) Active confirmed Problem Anxiety (96632303) Anxiety (F41.9) Active confirmed Problem Neck pain (14920149) Neck pain (M54.2) Active confirmed Problem Osteoarthritis (549775842) Osteoarthritis, unspecified osteoarthritis type, unspecified site (M19.90) Active confirmed Problem Significant coronary bypass graft disease (449898845) Coronary artery disease involving coronary bypass graft of [place] heart without angina pectoris (I25.810) Active confirmed Problem Exacerbation of moderate persistent asthma (disorder) (161328178) Moderate persistent asthmatic bronchitis with acute exacerbation (J45.41) Active confirmed Problem Tobacco abuse (2966301710) Tobacco abuse (Z72.0) Active confirmed Problem Chronic bronchitis (85673253) Chronic bronchitis, unspecified chronic bronchitis type (J42) Active confirmed Problem Febrile illness (049886970) Febrile illness (R50.9) Active confirmed Problem Wheezing (35948998) Wheezes (R06.2) Active confirmed Problem Acute exacerbation of chronic obstructive airways disease (899578225) COPD with acute exacerbation (J44.1) Active confirmed Problem Generalized anxiety disorder (75033590) HOWARD (generalized anxiety disorder) (F41.1) Active confirmed Problem Polymyalgia (93911337) Polymyalgia (M35.3) Active confirmed Problem Depression (758423414) Other depression (F32.89) Active confirmed Problem SI - Stress incontinence (64634081) Stress incontinence of urine (N39.3) Active confirmed Problem Oral candidiasis (33769303) Oral candidiasis (B37.0) Active confirmed Problem Major depression, single episode (12822753) Major depressive disorder with single episode, remission status unspecified (F32.9) Active confirmed Problem Environmental allergy (019920316) Environmental allergies (Z91.09) Active confirmed Problem Tobacco use (199847314) Tobacco use disorder (F17.200) Active confirmed Problem Cognitive decline (161834726) Cognitive decline (R41.89) Active confirmed Problem Pain in other joint (M25.59) Active confirmed Problem Primary hypertension (05102107) Primary hypertension (I10) Active confirmed Problem Benzodiazepine dependence (564624978) Benzodiazepine dependence (F13.20) Active confirmed Problem Acute cough (1788815153317840 04) Acute cough (R05.1) Active confirmed Problem Primary osteoarthritis (507086576) Primary osteoarthritis involving multiple joints (M15.9) Active confirmed Vital Signs Heart Rate 80 /min 12/09/2024 Temperature 98 degrees Fahrenheit 12/09/2024 Blood pressure diastolic 72 mm Hg 12/09/2024 Oximetry 95 % 12/09/2024 Height-cm 154.94 cm 12/09/2024 Weight-kg 59.42 kg 12/09/2024 Height 61 in 12/09/2024 Blood pressure systolic 130 mm Hg 12/09/2024 Weight 131 lbs 12/09/2024 BMI 24.75 kg/m2 12/09/2024 Encounters Encounter Location Date Provider Diagnosis [facility] [address] [address] 12/09/2024 Ryan Fritz Encounter for Medicare annual wellness exam Z00.00 ; Encounter for immunization Z23 ; Immunization not carried out because of patient refusal Z28.21 ; Essential (primary) hypertension I10 ; Gastro-esophageal reflux disease without esophagitis K21.9 ; HOWARD (generalized anxiety disorder) F41.1 ; Stress incontinence of urine N39.3 and Depression screen Z13.31 [facility] [address] [place] [phone] 08/07/2024 Ryan Fritz Essential (primary) hypertension I10 ; Gastro-esophageal reflux disease without esophagitis K21.9 ; HOWARD (generalized anxiety disorder) F41.1 ; Anxiety F41.9 and Depression screen Z13.31 [facility] [address] [address] 01/03/2024 Ryan Fritz HOWARD (generalized anxiety disorder) F41.1 ; Essential (primary) hypertension I10 and Gastro-esophageal reflux disease without esophagitis K21.9 [facility] [address] [address] 04/09/2024 Ryan Fritz Anxiety F41.9 ; Essential (primary) hypertension I10 ; Immunization not carried out because of patient refusal Z28.21 ; Nicotine dependence, cigarettes, uncomplicated F17.210 ; Positive depression screening Z13.31 ; Encounter for immunization Z23 and Tobacco use disorder F17.200 [facility] [address] [place] [phone] 12/10/2024 Ryan [facility] [address] [place] [phone] 05/19/2024 Ryan Fritz Assessments Encounter Date Diagnosis (ICD Code) Assessment Notes Treatment Notes Treatment Clinical Notes Section Notes 01/03/2024 Essential (primary) hypertension (ICD-10 - I10) 01/03/2024 HOWARD (generalized anxiety disorder) (ICD-10 - F41.1) She is doing really well. 04/09/2024 Essential (primary) hypertension (ICD-10 - I10) 04/09/2024 Anxiety (ICD-10 - F41.9) 08/07/2024 Essential (primary) hypertension (ICD-10 - I10) 08/07/2024 Gastro-esophageal reflux disease without esophagitis (ICD-10 - K21.9) 12/09/2024 Encounter for immunization (ICD-10 - Z23) 12/09/2024 Encounter for Medicare annual wellness exam (ICD-10 - Z00.00) Please schedule your next AWV in 1 year. Please schedule your next AWV in 1 year. 12/09/2024 Immunization not carried out because of patient refusal (ICD-10 - Z28.21) 08/07/2024 HOWARD (generalized anxiety disorder) (ICD-10 - F41.1) 04/09/2024 Immunization not carried out because of patient refusal (ICD-10 - Z28.21) 01/03/2024 Gastro-esophageal reflux disease without esophagitis (ICD-10 - K21.9) 04/09/2024 Nicotine dependence, cigarettes, uncomplicated (ICD-10 - F17.210) I spent 3 minutes on tobacco cessation counseling. Patient is not willing to attempt cessation. I will continue to area counselor and educate patient in future appointments about the harm and risks of tobacco abuse. I have discussed different medication options with patient today including chantix, wellbutrin, patches, gum and the process of slowly cutting back on nicotine. 12/09/2024 Essential (primary) hypertension (ICD-10 - I10) 08/07/2024 Anxiety (ICD-10 - F41.9) 08/07/2024 Depression screen (ICD-10 - Z13.31) 12/09/2024 Gastro-esophageal reflux disease without esophagitis (ICD-10 - K21.9) 04/09/2024 Positive depression screening (ICD-10 - Z13.31) Depression screening performed using PHQ-9 depression scale. Score greater than 5 indicating possible moderate depression. Plan of care discussed with patient and implemented accordingly, including any medications, referrals, education tools, and follow-up evaluations as deemed appropriate.. Depression screening performed using PHQ-9 depression scale. Score greater than 5 indicating possible moderate depression. Plan of care discussed with patient and implemented accordingly, including any medications, referrals, education tools, and follow-up evaluations as deemed appropriate. 7 mins spent with pt on depression 04/09/2024 Encounter for immunization (ICD-10 - Z23) 12/09/2024 HOWARD (generalized anxiety disorder) (ICD-10 - F41.1) 12/09/2024 Stress incontinence of urine (ICD-10 - N39.3) 04/09/2024 Tobacco use disorder (ICD-10 - F17.200) 12/09/2024 Depression screen (ICD-10 - Z13.31) Plan Of Treatment Next Appt Details Provider Name:Ryan Fritz, 06/10/2025 01:00:00 PM, [address] [place] [address], [phone], Insurance Providers Payer Name Payer Address Payer Phone Subscriber Number Group Number Insured Name Patient Relationship to Insured Coverage Start Date Coverage End Date [place] [address] [place] [phone] [id number] Nathaly Small Self - patient is the insured 8 [employer] Medicare Supplement [address] [place] [phone] [id number] Ida Small Other Medications Administered Medication Instructions Date of Administration Dosage Notes DEPO-Medrol 07/21/2021 40 mg NDC: [address]-24 Patient tolerated well, advised to wait 20 min at clinic DEPO-Medrol 08/11/2021 40 mg NDC: [address]-68 Patient tolerated well, advised to wait 20 min at clinic DEPO-Medrol 09/08/2021 40 mg NDC: [address]-40 Patient tolerated well, advised to wait 20 min at clinic DEPO-Medrol 09/29/2021 40 mg NDC: [address]-83 Patient tolerated well, advised to wait 20 min at clinic DEPO-Medrol 10/11/2021 40 mg NDC: [address]-38 Patient tolerated well, advised to wait 20 min at clinic DEPO-Medrol 01/02/2022 40 mg NDC: [address]-01 Patient tolerated well, advised to wait 20 min at clinic DEPO-Medrol 03/13/2022 40 mg NDC: [address]-41 Patient tolerated well, advised to wait 20 min at clinic DEPO-Medrol 05/30/2022 [place] [address] 3-01 pt tolerated well/instructed to wait 20 min DEPO-Medrol 08/04/2022 [place] [address]-948 3-01 pt tolerated well/instructed to wait 20 min DEPO-Medrol 10/23/2022 [place] [address] 3-01 pt tolerated well/instructed to wait 20 min DEPO-Medrol 11/20/2022 [place] [address] 3-01 pt tolerated well/instructed to wait 20 min DEPO-Medrol 10/28/2021 40 mg [facility] 13448-566 2-1 ot tolerated well/instructed to wait 20 min DEPO-Medrol 11/24/2021 40 mg [facility] 34423-226 2-1 pt tolerated well/instructed to wait 20 min dexAMETHasone 07/21/2021 4 mg NDC: 33270-756-92 Patient tolerated well, advised to wait 20 min at clinic dexAMETHasone 08/11/2021 4 mg ND: 41945-806-35 Patient tolerated well, advised to wait 20 min at clinic dexAMETHasone 09/08/2021 4 mg NDC: 07819-885-79 Patient tolerated well, advised to wait 20 min at clinic dexAMETHasone 09/29/2021 4 mg NDC:57575-444-20 Patient tolerated well, advised to wait 20 min at clinic dexAMETHasone 10/11/2021 4 mg NDC: 83443-957-87 Patient tolerated well, advised to wait 20 min at clinic dexAMETHasone 10/28/2021 4 mg [facility] 00432-2 39-30 pt tolerated well/instructed to wait 20 min dexAMETHasone 11/24/2021 [place] [address]-3 39-30 pt tolerated well/instructed to wait 20 min dexAMETHasone 01/02/2022 4 mg NDC: 75899-932-22 Patient tolerated well, advised to wait 20 min at clinic dexAMETHasone 03/13/2022 4 mg NDC: [address]-12 Patient tolerated well, advised to wait 20 min at clinic dexAMETHasone 05/30/2022 4 mg [facility] 81182-4 423-00 pt tolerated well/instructed to wait 20 min dexAMETHasone 08/04/2022 4 mg ndc 84957-1 423-00 pt tolerated well/instructed to wait 20 min dexAMETHasone 10/23/20[place] [address]-9 419-00 pt tolerated well/instructed to wait 20 min dexAMETHasone 11/20/2022 4 mg ndc 41050-9 423-00 pt tolerated well/instructed to wait 20 min Ketorolac Tromethamine 09/08/2021 60 mg NDC: 64195-908-65 Patient tolerated well, advised to wait 20 min at clinic Ketorolac Tromethamine 09/29/2021 60 mg NDC: 21678-215-57 Patient tolerated well, advised to wait 20 min at clinic Ketorolac Tromethamine 11/24/2021 [place] [address]-453-82 pt tolerated well/instructed to wait 20 min Ketorolac Tromethamine 03/13/2022 60 mg NDC: [address]-58 Patient tolerated well, advised to wait 20 min at clinic Rocephin 10/11/2021 250 mg NDC: 01082-473-49 Patient tolerated well, advised to wait 20 min at clinic Rocephin 01/02/2022 250 mg NDC: 0145-5632-01 Patient tolerated well, advised to wait 20 min at clinic Medical (General) History Medical History History ICD Code High Blood Pressure anxiety polymyalgia rheumatica COPD depression mumps measles bronchitis Surgical History Surgery Date(Month/Year) section x2 1973, 1976 right hip replacement 2017 heart bypass 2001 hip replacement 2016 Hospitalization History Reason Date(Month/Year) see surgery hx
--- OUTSIDE RECORDS SUMMARY | 2024-12-29 20:48 | XMS_ITS | Clinical Summary ---
Author Organization [facility] Address [address] [place] [address] Phone Care Team Providers Care Cupola Operator Insulation Name Role Phone OlayinkaLesa bey Justus DE [place] Primary Care Provide r Allergies No known active allergies Medications gabapentin (NEURONTIN) 100 MG capsule Take 100 mg by mouth 3 (three) times a day 7 Active metoprolol succinate (TOPROL-XL) 50 MG 24 hr tabletIndications :hypertension Take 50 mg by mouth nightly 7 Active mirtazapine (REMERON) 15 MG tablet Take 30 mg by mouth nightly 7 Active omeprazole (PRILOSEC) [address] capsule Take 20 mg by mouth one (1) time a day 7 Active oxybutynin (DITROPAN-XL) 5 MG 24 hr tablet Take 5 mg by mouth as needed 7 Active sertraline (ZOLOFT) 100 MG tablet Take 100 mg by mouth 2 (two) times a day 7 Active montelukast (SINGULAIR) 10 mg tablet Take 10 mg by mouth one (1) time a day 7 Active amLODIPine (NORVASC) 10 MG tablet Take 10 mg by mouth one (1) time a day 7 Active PROAIR HFA 90 mcg/actuation inhaler Inhale 2 puffs into the lungs every 4 (four) hours as needed for shortness of breath 7 Active fluticasone (FLONASE) 50 mcg/actuation nasal spray 2 sprays by Each Nare route as needed for allergies 7 Active loratadine (CLARITIN) 10 mg tablet Take 10 mg by mouth one (1) time a day Active cloNIDine HCl (CATAPRES) 0.1 MG tablet 7 Active traZODone (DESYREL) 100 MG tablet 7 Active atorvastatin (LIPITOR) 20 MG tablet 7 Active FLUCELVAX QUAD 4845-2103, PF, 60 mcg (15 mcg x 4)/0.5 mL IM vaccine syringe 7 Active furosemide (LASIX) 40 MG tablet as needed 7 Active ketoconazole (NIZORAL) 2 % cream 7 Active mirtazapine (REMERON) 30 MG tablet 30 mg 7 Active PREVNAR 13, PF, 0.5 mL IM syringe 7 Active potassium chloride (MICRO-K) 10 mEq ER capsule 7 Active beclomethasone (QVAR) 80 mcg/actuation inhalerIndication s:Mixed simple and mucopurulent chronic bronchitis (HCC ) Inhale two puffs into the lungs 2 (two) times a day 1 Inhaler 12 8 Active Active Problems Problem Noted Date Diagnosed Date Chronic congestive heart failure 10/10/2016 PNA (pneumonia) 10/08/2016 Acute respiratory failure with hypoxia 7 Mixed simple and mucopurulent chronic bronchitis 10/07/2016 Acute lung edema 10/07/2016 Pneumonia 10/06/2016 S/P total hip arthroplasty 10/02/2016 Essential hypertension, benign 09/21/2016 Preop cardiovascular exam 09/21/2016 S/P CABG x 2 09/21/2016 Coronary atherosclerosis 09/21/2016 LBBB (left bundle branch block) 09/21/2016 Right hip pain 08/15/2016 Joint pain of right hip on movement 08/15/2016 Pre-op exam 08/15/2016 Primary osteoarthritis of right hip 08/10/2016 Family History Medical History Relation Name Comments High Blood Pressure Brother Heart disease Father High Blood Pressure Father Cancer Maternal Uncle Heart disease Mother Arthritis Other Heart attack Other Diabetes Paternal Grandmother Cancer Paternal Uncle High Blood Pressure Sister Relation Name Status Comments Brother Father Maternal Uncle Mother Other Paternal Grandmother Paternal Uncle Sister Social History Tobacco Use Types Packs/Day Years Used Date Smoking Tobacco: Former Cigarettes 1 40 0 10/02/1976 - 10/02/2016 Smokeless Tobacco: Never Alcohol Use Standard Drinks/Week Comments Yes 2 (1 standard drink = 0.6 oz pur e alcohol) Intimate Partner Safety Answer Date Rec orded Intimate Partner Safety Not At Risk 04/28/19 24 Intimate Partner Safety Not At Risk 04/28/19 24 Intimate Partner Safety Not At Risk 04/28/19 24 Intimate Partner Safety Not on file 04/28/19 24 Intimate Partner Safety Not At Risk 04/28/19 24 Comments No Sex and Gender Information Value Date Recorded Sex Assigned at Not on file Legal Sex Female 1:47 PM CDT Gender Identity Not on file Sexual Orientation Not on file Last Filed Vital Signs Vital Sign Reading Time Taken Comments Blood Pressure 157/91 05/28/2017 3:21 PM CDT Pulse 70 05/28/2017 3:21 PM CDT Temperature 36.9 C (98.4 F) 10/13/2016 8:25 AM CDT Respiratory Rate 16 05/28/2017 3:21 PM CDT Oxygen Saturation 100% 05/28/2017 3:21 PM CDT Inhaled Oxygen Concentration - - Weight 80.5 kg (177 lb 6.4 oz) 05/28/2017 3:21 P M CDT Height 154.9 cm (5' 1 ) 05/28/2017 3:21 PM CDT Body Mass Index 33.52 05/28/2017 3:21 PM CDT Plan of Treatment Health Maintenance Due Date Last Done Comments Colorectal Cancer Screening Cologuard 1953 Annual Depression Screening 01/25/1964 Hepatitis C Antibody Screen 1971 Pneumococcal Vaccine Age 50+ (1 of 2 - PCV) 01/25/1972 Mammogram 1993 RSV Immunization Pa tients or 60+ Years (1 - Risk 60-74 years 1-dose series) 2013 Bone Density 2018 Flu Vaccine (#1) 10/27/2024 Influenza Vaccine 10/27/2024 Lung Cancer Screening Discontinued 10/07/2016 Medical Devices Implanted Type Area Deck Cadet Device Identifier Shelf Expiration Date Model / Serial / Lot Construct Knee [employer] - [id number] Implanted:Qty: 1 on 10/02/2016 by Cleveland Gonzáles MD at [facility] Knee Right: Hip STRY-ORTH [id number] / / Procedures Procedure Name Priority Date/Time Associated Diagnosis Comments CT CHEST WO CONTRAST Routine 10/07/2016 10:24 AM CDT from Last 3 Months or Most Recently Relevant to Health Maintenance Results * CT Chest Without Contrast (10/07/2016 10:24 AM CDT) Anatomical Region Laterality Modality Chest Computed Tomogra phy 10/07/2016 10:2 5 AM CDT Impressions 10/07/2016 10:31 AM CDT IMPRESSION: Extensive bilateral multifocal pneumonia and small parapneumonic effusions have worsened since 2 days prior Narrative 10/07/2016 10:31 AM CDT Examination: CT CHEST WO CONTRAST Patient Name: ROMERO MALLOY Patient Age: 61 years Reason for study: eval for pneumonia. Reference: CT chest October 05, 2016 at outside facility Technique: Helical scan was performed of the chest after IV contrast. Multiplanar reformatted images are provided. For this CT exam, one or more of the following dose reduction techniques was employed: automated exposure control, mA and/or kVp adjustment for patient size, & iterative reconstruction. Findings Prior median sternotomy. Shotty mediastinal lymph nodes are likely reactive. The heart is not enlarged. There is no pericardial effusion. There is coronary calcification in this patient status post CABG. Small bilateral pleural effusions have increased in size since 2 days prior. Extensive patchy bilateral upper lobe groundglass opacities have increased in the interval. There are now superimposed patchy areas of hunter consolidation. Findings are present to a lesser extent the bilateral lower lobes and middle lobe, and have worsened there as well. There is no interlobular septal thickening. Incidental imaging of the upper abdomen and bones is within expected limits. Procedure Note Dwight Mayer - 10/07/2016 Examination: CT CHEST WO CONTRAST Patient Name: ROMERO MALLOY Patient Age: 61 years Reason for study: eval for pneumonia. Reference: CT chest October 05, 2016 at outside facility Technique: Helical scan was performed of the chest after IV contrast. Multiplanar reformatted images are provided. For this CT exam, one or more of the following dose reduction techniques was employed: automated exposure control, mA and/or kVp adjustment for patient size, & iterative reconstruction. Findings Prior median sternotomy. Shotty mediastinal lymph nodes are likely reactive. The heart is not enlarged. There is no pericardial effusion. There is coronary calcification in this patient status post CABG. Small bilateral pleural effusions have increased in size since 2 days prior. Extensive patchy bilateral upper lobe groundglass opacities have increased in the interval. There are now superimposed patchy areas of hunter consolidation. Findings are present to a lesser extent the bilateral lower lobes and middle lobe, and have worsened there as well. There is no interlobular septal thickening. Incidental imaging of the upper abdomen and bones is within expected limits. IMPRESSION: Extensive bilateral multifocal pneumonia and small parapneumonic effusions have worsened since 2 days prior Kathleen Jones MD CT IMG ORDERABLES Final Result from Last 3 Months or Most Recently Relevant to Health Maintenance Insurance [facility] Advance Directives For more information, please contact: [phone] (7AM - 5PM [facility], 7 days a week) * Full Code (Latest Code Status on File) Date Activated Date Inactivated Comments 10/06/2016 3:17 AM 10/13/2016 7:27 PM * Full Code Date Activated Date Inactivated Comments 10/02/2016 11:31 AM 10/04/2016 1:08 PM * Full Code Date Activated Date Inactivated Comments 10/02/2016 7:29 AM 10/02/2016 11:31 AM * Full Code Date Activated Date Inactivated Comments 09/13/2016 8:38 AM 09/13/2016 12:54 PM Care Teams Cupola Operator Insulation Relationship Specialty Start Date End Date Lesa Palacios NP NPI: [id number] [place] [id number] PCP - General 09/26/16
[2024-12-29 21:07] LABS: Hematocrit 42.4 % (36-47); Hemoglobin 13.90 g/dL (11.27-16.99); Mean Corpuscular HGB Conc 32.8 g/dL (30-55); Mean Corpuscular Hemoglobin 32.3 pg (27-33); Mean Corpuscular Volume 98.4 fl (85-98); Nucleated Red Blood Cells % 0 %; Platelet Count 286 10^3/cmm (157-399); Red Blood Count 4.31 10^6/uL (3.85-5.65); White Blood Count 9.57 10^3/uL (3.29-11.43)
[2024-12-29 21:22] LABS: Alanine Aminotransferase 8 U/L (0-33); Albumin Level 4.0 g/dL (3.5-5.2); Alkaline Phosphatase 114 U/L (35-105); Anion Gap 18.4 (5-19); Aspartate Amino Transferase 18 U/L (0-32); Blood Urea Nitrogen 12 mg/dL (8-23); Calcium 9.0 mg/dL (8.5-10.5); Carbon Dioxide 21 mmol/L (22-29); Chloride 102 mmol/L (98-107); Creatinine Clr Calc Pharmacy 48.5553; Globulin 3.0 g/dL (1.3-4.6); Glucose 84 mg/dL (65-115); Osmolality Calculated 285 mOsm/kg (285-295); Potassium 3.4 mmol/L (3.5-5.1); Sodium 138 mmol/L (136-145); Total Protein 7.0 g/dL (6.6-8.7)
[2024-12-29 21:28] VITALS: PULSE 75; RESP 18; O2SAT 97
[2024-12-29 21:31] VITALS: PULSE 75; RESP 18; O2SAT 97
[2024-12-29 23:00] VITALS: BP 155/74; PULSE 82; O2SAT 95
== END 2024-12-29 23:17 | disposition home or self-care (01) ==
PROVIDERS: Emergency Provider Emergency Medicine; PCP Nurse Practitioner Family
DX: R55 Syncope and collapse (principal); T17.998A Other foreign object in respiratory tract, part unspecified causing other injury, initial encounter; X58.XXXA Exposure to other specified factors, initial encounter; S09.8XXA Other specified injuries of head, initial encounter; W19.XXXA Unspecified fall, initial encounter; I65.21 Occlusion and stenosis of right carotid artery; J44.1 Chronic obstructive pulmonary disease with (acute) exacerbation; Z79.82 Long term (current) use of aspirin; F17.210 Nicotine dependence, cigarettes, uncomplicated; Z95.1 Presence of aortocoronary bypass graft; I25.10 Atherosclerotic heart disease of native coronary artery without angina pectoris; I11.0 Hypertensive heart disease with heart failure; I50.9 Heart failure, unspecified
CPT/HCPCS: 36415; 70450; 70486; 72125; 80053; 85025; 93005; 94640; 99284; J9999